=== PATIENT | male | born 1995 ===

== ENCOUNTER 2017-03-09 13:03 | Emergency (ER) | payer SELFPAY ==
[~2017-03-09] VITALS: Ht 175.3 cm; Wt 81.8 kg
[2017-03-09 13:05] VITALS: BP 159/100
== END 2017-03-09 16:57 | disposition left against medical advice (07) ==
LOC: EMS 13:05
DX: H92.01 Otalgia, right ear (principal); F17.210 Nicotine dependence, cigarettes, uncomplicated; Z53.21 Procedure and treatment not carried out due to patient leaving prior to being seen by health care provider